=== PATIENT | male | born 1985 | race Caucasian/White ===

== ENCOUNTER → 2021-05-07 | Outpatient (CLI) | payer OTHER ==
--- NOTE | 2021-05-07 17:17 | RAD ---
XR CERVICAL SPINE 4-5V History: Reason: NECK PAIN / Spl. Instructions: / History: Technique: 5 views cervical spine. Comparison: None. Findings: Normal vertebral body height and alignment. No acute fracture. Mild degenerative disc changes most pr ominent C4-C5 and C5-C6. Normal alignment C1 on C2. Prevertebral soft tissues are unremarkable. Impression: 1. Mild cervical spondylosis. Electronically signed by: Suhail Powers DO (05/07/2021 5:15 PM) [id number]
== END ==
LOC: RAD 10:09
PROVIDERS: ATTEND Anesthesiology Pain Medicine
DX: Z02.71 Encounter for disability determination (principal); M47.812 Spondylosis without myelopathy or radiculopathy, cervical region; M50.321 Other cervical disc degeneration at C4-C5 level
CPT/HCPCS: 72050